=== PATIENT | female | born 1940 | race Caucasian/White ===

== ENCOUNTER → 2017-03-08 | Outpatient (CLI) | payer MEDICARE, OTHER ==
[~2017-03-08] MED LIST: AMBIEN5 MG PO; ASPIRIN 81MG TA81 MG PO; BYSTOLIC10 MG PO; CELEBREX200 MG PO; LEXAPRO20 M1 PO; LIPITOR40 MG PO; METOPROLOL50 MG OR; NEXIUM40 MG PO; NITROGLYCERIN0.4 MG SL; PLAVIX75 MG PO; PRAVACHOL40 MG PO; SYNTHROID 0.0.125 MG PO
--- NOTE | 2017-03-14 12:57 | RADIOLOGY REPORT PS360 ---
DIG MAMM-SCREEN [facility] W/CAD CAD Screening ORDERING PHYSICIAN : Sanjiv Hahn MD PATIENT AGE: 76 years GENDER: Female COMPARISON: Previous mammograms: June 2015, February 2012, January 2011, January 2010 INDICATION: Routine screening no hormones no new complaints noncontributory family history TECHNIQUE: Standard CC and MLO images were obtained. R2 CAD reviewed. Additional axillary cc views both breast included FINDINGS: Mild/moderate density breast bilaterally. RIGHT BREAST: Subtle focal area of density upper-outer quadrant right breast is unchanged studies dating back to at least 03/2010. No change not of significant concern. Small other areas nodularity stable as well. Follow-up in one year on right. LEFT BREAST: No appreciable change IMPRESSION: Stable mammogram with no significant new findings. Moderate breast density Follow-up one year BI-RADS CATEGORY: 2_Benign RECOMMENDED FOLLOWUP: 12M 12 MONTH FOLLOW-UP (A letter has been sent to the patient regarding results of the study.)
== END ==
LOC: RAD 15:16
DX: Z12.31 Encounter for screening mammogram for malignant neoplasm of breast (principal)
CPT/HCPCS: G0202